=== PATIENT | male | born 1960 | race Two or more races ===

== ENCOUNTER 2020-07-03 17:37 | Inpatient (IN) | payer MEDICAID, OTHER ==
[~2020-07-03] VITALS: Ht 167.6 cm; Wt 103.2 kg
[2020-07-03] MEDS ORDERED: ZINC SULFATE 220mg CAP or TAB PO ONE (18:00)
[2020-07-03] MEDS ORDERED: methylPREDNISolone SOD SUCC 125 MG/2 ML VL IV ONE (18:00)
[2020-07-03] MEDS ORDERED: CHOLECALCIFEROL (VITD3) 2,000 UNIT CAP/TAB PO ONE (18:00)
[2020-07-03] MEDS ORDERED: ASCORBIC ACID 500 MG TAB PO ONE (18:00)
[2020-07-03 18:33] LABS: Basophils # (auto) 0 10 ^3/uL (0-0.2); Basophils % (auto) 0.1 % (0.0-2.0); Eosinophils # (auto) 0 10 ^3/uL (0-0.8); Hematocrit 40.3 % (41.0-53.0); Hemoglobin 13.5 g/dL (13.5-17.5); Lymphocytes # (auto) 0.3 10 ^3/uL (0.4-5.4); Lymphocytes % (auto) 3.3 % (10.0-50.0); Mean Corpuscular Hemoglobin 30.3 pg (28.0-32.0); Mean Corpuscular Hgb Conc. 33.5 g/dL (32.0-36.0); Mean Corpuscular Volume 90.4 fL (80.0-100.0); Monocytes # (auto) 0.3 10 ^3/uL (0-1.3); Monocytes % (auto) 3.2 % (0.0-12.0); Neutrophils # (auto) 9.8 10 ^3/uL (1.6-8.6); Neutrophils % (auto) 93.4 % (37.0-80.0); Platelet Count (auto) 269 10^3/uL (140-450); Red Blood Cells 4.46 10^6/uL (4.5-5.90); Red Cell Distribution Width 14.4 % (11.8-14.3); White Blood Cell 10.5 10^3/uL (4.4-10.8)
[2020-07-03] MEDS ORDERED: FUROSEMIDE 40 MG/4 ML VIAL IV ONE (18:45)
[2020-07-03 18:48] LABS: Albumin 2.3 g/dL (3.4-5.0); Anion Gap 9 (5-15); Blood Urea Nitrogen 51 mg/dL (7-18); Calcium 8.4 mg/dL (8.5-10.1); Carbon Dioxide 23 mmol/L (21-32); Chloride 98 mmol/L (98-107); Potassium 4.6 mmol/L (3.5-5.1); Sodium 130 mmol/L (136-145)
[2020-07-03 18:51] LABS: Lactic Acid w/Reflex 3.7 mmol/L (0.4-2.0)
[2020-07-03 18:56] LABS: Alanine Aminotransferase 77 U/L (16-61); Alkaline Phosphatase 110 U/L (45-117); Aspartate Aminotransferase 66 U/L (15-37); BUN/Creatinine Ratio 31.5; Bilirubin, Total 0.2 mg/dL (0.2-1.0); GFR African American 57 mL/min; GFR Non-African American 47 mL/min; Total Protein 7.6 g/dL (6.4-8.2)
[2020-07-03 19:00] LABS: Glucose 589 mg/dL (74-106)
[2020-07-03] MEDS ORDERED: HYDROcodone-ACET 5/325MG TAB PO PRN (19:30)
[2020-07-03] MEDS ORDERED: LORazepam 0.5 MG TAB PO PRN (19:30)
[2020-07-03] MEDS ORDERED: REMDESIVIR PER PHARMACY 0 ML IV SCH (19:30)
[2020-07-03] MEDS ORDERED: LACTATED RINGER'S 1,000 ML IV ONE (19:30)
[2020-07-03] MEDS ORDERED: ONDANSETRON HCL 4 MG/2 ML VIAL IV PRN (19:30)
[2020-07-03] MEDS ORDERED: ACETAMINOPHEN 500 MG TAB PO PRN (19:30)
[2020-07-03] MEDS ORDERED: ENOXAPARIN SOD 120 MG/0.8 ML SYRINGE SC ONE (19:30)
[2020-07-03] MEDS ORDERED: ALBUMIN 25% 100 ML IV ONE (19:30)
[2020-07-03] MEDS ORDERED: MORPHINE SULF INJ 2 MG/ML SYRINGE 1ML IV PRN ×2 (19:30)
[2020-07-03] MEDS ORDERED: ALUM & MAG HYDROX-SIMETH LIQ(MAALOX) 30 ML PO PRN (19:30)
[2020-07-03] MEDS ORDERED: InsuLIN REG 1unit/0.01ml Soln (100units/ml) SC ONE (19:30)
[2020-07-03] MEDS ORDERED: NITROGLYCERIN 0.4 MG SL TAB SL PRN (19:30)
[2020-07-03] MEDS ORDERED: InsuLIN REG 1unit/0.01ml Soln (100units/ml) IV ONE (19:30)
[2020-07-03] MEDS ORDERED: DEXTROSE (50%) 50ML SYRG IV PRN (19:30)
[2020-07-03] MEDS ORDERED: FUROSEMIDE 100 MG/10ML VIAL IV ONE (19:45)
[2020-07-03] MEDS ORDERED: hydrALAZINE HCL 20 MG/ML VL IV PRN (19:45)
[2020-07-03 19:57] LABS: Magnesium 2.4 mg/dL (1.6-2.6)
[2020-07-03 20:05] VITALS: BP 120/73
[2020-07-03 20:06] LABS: CRP High Sensitivity 9.12 mg/dL (< 0.3)
[2020-07-03] MEDS: CEFTRIAXONE SODIUM 2 GM in D5W 5% 50 ML IV SCH (21:11)
[2020-07-03 21:48] LABS: Cholesterol 120 mg/dL (< 200); HDL Cholesterol 18 mg/dL (40-59); LDL Cholesterol 72 mg/dL (< 100); Triglycerides 345 mg/dL (< 150)
[2020-07-03] MEDS: FAMOTIDINE (10MG/ML) 2ML VL IV SCH (22:10)
[2020-07-03] MEDS: ATORVASTATIN 20 MG TAB PO SCH (22:11)
[2020-07-03] MEDS: AZITHROMYCIN 500MG/ 250ML 250 ML IV SCH (23:05)
[2020-07-03 23:50] VITALS: BP 159/84
[2020-07-04] MEDS: ACCU-CHEK COMFORT CURVE STRIP VI SCH ×5 (00:12→23:52)
[2020-07-04] MEDS: InsuLIN REG 1unit/0.01ml Soln (100units/ml) SC SCH ×5 (00:12→21:22)
[2020-07-04] MEDS: BUDESONIDE (INHALATION) 180 MCG IH IN SCH ×3 (00:39→22:28)
[2020-07-04 00:53] LABS: Urine Bacteria NONE SEEN /hpf (None Seen); Urine Blood TRACE /uL (Negative); Urine Specific Gravity 1.013 (1.001-1.035); Urine WBC <1 /hpf (0 - 3)
[2020-07-04 01:08] LABS: Amphetamine Screen, Urine NEGATIVE (NEGATIVE); Barbiturate Scree,Urine NEGATIVE (NEGATIVE); Benzodiazephine Screen, Urine NEGATIVE (NEGATIVE); Cannabinoid Screen, Urine NEGATIVE (NEGATIVE); Cocaine Screen, Urine NEGATIVE (NEGATIVE); Opiate Scree,Urine NEGATIVE (NEGATIVE); Phencyclidine Screen, Urine NEGATIVE (NEGATIVE)
[2020-07-04 02:32] VITALS: BP 126/66
[2020-07-04] MEDS ORDERED: ALBUMIN 25% 100 ML IV SCH ×2 (03:30→22:15)
[2020-07-04] MEDS ORDERED: FUROSEMIDE 20 MG/2 ML VIAL IV SCH (06:00)
[2020-07-04 06:30] LABS: Basophils # (auto) 0 10 ^3/uL (0-0.2); Basophils % (auto) 0.1 % (0.0-2.0); Eosinophils # (auto) 0 10 ^3/uL (0-0.8); Eosinophils % (auto) 0.1 % (0.0-7.0); Hematocrit 39.1 % (41.0-53.0); Hemoglobin 13.5 g/dL (13.5-17.5); Lymphocytes # (auto) 0.5 10 ^3/uL (0.4-5.4); Lymphocytes % (auto) 5.7 % (10.0-50.0); Mean Corpuscular Hgb Conc. 34.5 g/dL (32.0-36.0); Monocytes # (auto) 0.3 10 ^3/uL (0-1.3); Monocytes % (auto) 3.2 % (0.0-12.0); Neutrophils # (auto) 8.1 10 ^3/uL (1.6-8.6); Neutrophils % (auto) 90.9 % (37.0-80.0); Platelet Count (auto) 282 10^3/uL (140-450); Red Cell Distribution Width 14.3 % (11.8-14.3); White Blood Cell 8.9 10^3/uL (4.4-10.8)
[2020-07-04 06:35] LABS: INR 0.98 (0.9-1.15); Partial Thromboplastin Time 27.6 sec (23.0-31.2)
[2020-07-04 06:46] VITALS: BP 152/90
[2020-07-04 07:13] LABS: Albumin 2.8 g/dL (3.4-5.0); BUN/Creatinine Ratio 32.3; Bilirubin, Total 0.4 mg/dL (0.2-1.0); Calcium 8.7 mg/dL (8.5-10.1); Magnesium 2.3 mg/dL (1.6-2.6); Phosphorus 2.7 mg/dL (2.5-4.90); Total Protein 7.8 g/dL (6.4-8.2)
[2020-07-04 09:32] VITALS: BP 160/84
[2020-07-04] MEDS ORDERED: ENOXAPARIN SOD 120 MG/0.8 ML SYRINGE SC SCH (10:00)
[2020-07-04] MEDS ORDERED: IVERMECTIN 3 MG TAB PO ONE (10:00)
[2020-07-04] MEDS: AZITHROMYCIN 500MG/ 250ML 250 ML IV SCH (10:00)
[2020-07-04] MEDS: DexAMETHasone SOD PHOS 10MG/1ML VIAL INJ IV SCH (10:19)
[2020-07-04] MEDS: ASPirin 81 mg TAB PO SCH (10:19)
[2020-07-04] MEDS: ZINC SULFATE 220mg CAP or TAB PO SCH (10:20)
[2020-07-04] MEDS: ASCORBIC ACID 1,000 MG TAB PO SCH (10:20)
[2020-07-04] MEDS: CHOLECALCIFEROL (VITD3) 2,000 UNIT CAP/TAB PO SCH (10:20)
[2020-07-04] MEDS: CEFTRIAXONE SODIUM 2 GM in D5W 5% 50 ML IV SCH (12:02)
[2020-07-04] MEDS: ALBUMIN 25% 100 ML IV SCH ×2 (13:39→21:00)
[2020-07-04 14:36] VITALS: BP 184/91
[2020-07-04] MEDS ORDERED: REMDESIVIR 200 MG in NS 210ml LOADING DOSE ADULT IV ONE (15:00)
[2020-07-04] MEDS ORDERED: LISI-648 PO (16:39)
[2020-07-04] MEDS ORDERED: MULT1TAB82 PO (16:39)
[2020-07-04] MEDS ORDERED: ATOR10TA52 PO (16:39)
[2020-07-04] MEDS ORDERED: INSU100I4 SC (16:39)
[2020-07-04] MEDS ORDERED: INSUINJ37 SC (16:39)
[2020-07-04] MEDS ORDERED: GABA-339 PO (16:39)
[2020-07-04] MEDS ORDERED: METF-372 PO (16:39)
[2020-07-04] MEDS ORDERED: OMEG300C7 PO (16:40)
[2020-07-04] MEDS ORDERED: FUROSEMIDE 40 MG/4 ML VIAL IV ONE (19:15)
[2020-07-04 19:53] VITALS: BP 134/59
[2020-07-04] MEDS: INSULIN LANTUS (GLARGINE) 1 /0.01ml (100units/ml) SC SCH (21:27)
[2020-07-04] MEDS: FAMOTIDINE (10MG/ML) 2ML VL IV SCH (21:41)
[2020-07-04] MEDS: ATORVASTATIN 20 MG TAB PO SCH (21:42)
[2020-07-04] MEDS: ENOXAPARIN SOD 60 MG/0.6 ML SYRINGE SC SCH (21:42)
[2020-07-04] MEDS: ALBUTEROL SULF HFA 90MCG INH 200DOSE IN PRN (22:29)
[2020-07-04 22:38] VITALS: BP 145/76
[2020-07-05] VITALS (8 sets, daily range): BP systolic 116–169; BP diastolic 58–88
[2020-07-05] MEDS: ACCU-CHEK COMFORT CURVE STRIP VI SCH ×4 (05:57→23:38)
[2020-07-05] MEDS: InsuLIN REG 1unit/0.01ml Soln (100units/ml) SC SCH ×4 (06:01→23:40)
[2020-07-05 06:12] LABS: Basophils # (auto) 0 10 ^3/uL (0-0.2); Eosinophils # (auto) 0 10 ^3/uL (0-0.8); Hematocrit 37.4 % (41.0-53.0); Hemoglobin 12.8 g/dL (13.5-17.5); Lymphocytes # (auto) 0.6 10 ^3/uL (0.4-5.4); Lymphocytes % (auto) 7.9 % (10.0-50.0); Mean Corpuscular Hgb Conc. 34.3 g/dL (32.0-36.0); Mean Corpuscular Volume 87.5 fL (80.0-100.0); Monocytes # (auto) 0.4 10 ^3/uL (0-1.3); Monocytes % (auto) 5.4 % (0.0-12.0); Neutrophils # (auto) 6.7 10 ^3/uL (1.6-8.6); Neutrophils % (auto) 86.7 % (37.0-80.0); Nucleated Red Blood Cells % 0.2 %; Platelet Count (auto) 295 10^3/uL (140-450); Red Blood Cells 4.28 10^6/uL (4.5-5.90); Red Cell Distribution Width 14.1 % (11.8-14.3); White Blood Cell 7.7 10^3/uL (4.4-10.8)
[2020-07-05 06:26] LABS: Potassium 3.7 mmol/L (3.5-5.1)
[2020-07-05] MEDS: BUDESONIDE (INHALATION) 180 MCG IH IN SCH ×2 (06:30→19:20)
[2020-07-05 06:39] LABS: Albumin 3.2 g/dL (3.4-5.0); BUN/Creatinine Ratio 37.6; Bilirubin, Total 0.4 mg/dL (0.2-1.0); Calcium 8.9 mg/dL (8.5-10.1); Total Protein 7.7 g/dL (6.4-8.2)
[2020-07-05] MEDS: ALBUTEROL SULF HFA 90MCG INH 200DOSE IN PRN ×2 (06:49→19:20)
[2020-07-05] MEDS: DexAMETHasone SOD PHOS 10MG/1ML VIAL INJ IV SCH (08:02)
[2020-07-05] MEDS ORDERED: cefTRIAXone 1GM/50ML D5W 0 ML IV ONE (08:05)
[2020-07-05] MEDS: ASPirin 81 mg TAB PO SCH (08:09)
[2020-07-05] MEDS: CEFTRIAXONE SODIUM 2 GM in D5W 5% 50 ML IV SCH (08:09)
[2020-07-05] MEDS: FUROSEMIDE 40 MG/4 ML VIAL IV SCH (08:09)
[2020-07-05] MEDS: AZITHROMYCIN 500MG/ 250ML 250 ML IV SCH (08:09)
[2020-07-05] MEDS: ZINC SULFATE 220mg CAP or TAB PO SCH (08:10)
[2020-07-05] MEDS: ENOXAPARIN SOD 60 MG/0.6 ML SYRINGE SC SCH ×2 (08:10→22:15)
[2020-07-05] MEDS: ASCORBIC ACID 1,000 MG TAB PO SCH (08:10)
[2020-07-05] MEDS: CHOLECALCIFEROL (VITD3) 2,000 UNIT CAP/TAB PO SCH (08:10)
[2020-07-05] MEDS: REMDESIVIR 100mg 100 MG in SODIUM CHL 0.9% 230 ML IV SCH (17:14)
[2020-07-05] MEDS ORDERED: POTASSIUM CHL 20 Meq TABLET PO ONE (20:30)
[2020-07-05] MEDS: INSULIN LANTUS (GLARGINE) 1 /0.01ml (100units/ml) SC SCH (22:14)
[2020-07-05] MEDS: ATORVASTATIN 20 MG TAB PO SCH (22:15)
[2020-07-05] MEDS: FAMOTIDINE (10MG/ML) 2ML VL IV SCH (22:15)
[2020-07-06] VITALS: BP_SYST 131; BP_SYST 155; BP_DIAS 65; BP_DIAS 82
[2020-07-06 06:07] LABS: Potassium 3.7 mmol/L (3.5-5.1)
[2020-07-06] MEDS: ACCU-CHEK COMFORT CURVE STRIP VI SCH ×4 (06:08→23:52)
[2020-07-06] MEDS: InsuLIN REG 1unit/0.01ml Soln (100units/ml) SC SCH ×4 (06:16→23:52)
[2020-07-06 06:19] LABS: Albumin 2.9 g/dL (3.4-5.0); BUN/Creatinine Ratio 37.9; Bilirubin, Total 0.4 mg/dL (0.2-1.0); Calcium 8.7 mg/dL (8.5-10.1); Total Protein 7.5 g/dL (6.4-8.2)
[2020-07-06] MEDS: ALBUTEROL SULF HFA 90MCG INH 200DOSE IN PRN ×2 (06:23→18:30)
[2020-07-06] MEDS: BUDESONIDE (INHALATION) 180 MCG IH IN SCH ×2 (06:23→18:30)
[2020-07-06 07:54] VITALS: BP 117/60
[2020-07-06] MEDS: FAMOTIDINE (10MG/ML) 2ML VL IV SCH ×2 (10:15→21:29)
[2020-07-06] MEDS: FUROSEMIDE 40 MG/4 ML VIAL IV SCH (10:15)
[2020-07-06] MEDS: DexAMETHasone SOD PHOS 10MG/1ML VIAL INJ IV SCH (10:15)
[2020-07-06] MEDS: ASCORBIC ACID 1,000 MG TAB PO SCH (10:16)
[2020-07-06] MEDS: CHOLECALCIFEROL (VITD3) 2,000 UNIT CAP/TAB PO SCH (10:16)
[2020-07-06] MEDS: POTASSIUM CHL 20 Meq TABLET PO SCH (10:16)
[2020-07-06] MEDS: AZITHROMYCIN 500MG/ 250ML 250 ML IV SCH (10:16)
[2020-07-06] MEDS: ENOXAPARIN SOD 60 MG/0.6 ML SYRINGE SC SCH ×2 (10:16→21:29)
[2020-07-06] MEDS: ZINC SULFATE 220mg CAP or TAB PO SCH (10:16)
[2020-07-06] MEDS: ASPirin 81 mg TAB PO SCH (10:16)
[2020-07-06] MEDS: REMDESIVIR 100mg 100 MG in SODIUM CHL 0.9% 230 ML IV SCH (15:18)
[2020-07-06 15:44] VITALS: BP 109/69
[2020-07-06] MEDS: CEFTRIAXONE SODIUM 2 GM in D5W 5% 50 ML IV SCH (17:01)
[2020-07-06] MEDS: ATORVASTATIN 20 MG TAB PO SCH (21:29)
[2020-07-06] MEDS: INSULIN LANTUS (GLARGINE) 1 /0.01ml (100units/ml) SC SCH (21:34)
[2020-07-06 23:48] VITALS: BP 137/66
[2020-07-07] MEDS: InsuLIN REG 1unit/0.01ml Soln (100units/ml) SC SCH ×4 (05:32→23:58)
[2020-07-07] MEDS: ACCU-CHEK COMFORT CURVE STRIP VI SCH ×3 (05:32→17:40)
[2020-07-07 06:06] LABS: Basophils # (auto) 0 10 ^3/uL (0-0.2); Basophils % (auto) 0.1 % (0.0-2.0); Eosinophils # (auto) 0 10 ^3/uL (0-0.8); Eosinophils % (auto) 0.1 % (0.0-7.0); Hematocrit 40.3 % (41.0-53.0); Hemoglobin 13.9 g/dL (13.5-17.5); Lymphocytes # (auto) 0.5 10 ^3/uL (0.4-5.4); Lymphocytes % (auto) 6.4 % (10.0-50.0); Mean Corpuscular Hemoglobin 30.2 pg (28.0-32.0); Mean Corpuscular Hgb Conc. 34.4 g/dL (32.0-36.0); Monocytes # (auto) 0.1 10 ^3/uL (0-1.3); Monocytes % (auto) 1.3 % (0.0-12.0); Neutrophils # (auto) 7.2 10 ^3/uL (1.6-8.6); Neutrophils % (auto) 92.1 % (37.0-80.0); Platelet Count (auto) 305 10^3/uL (140-450); Red Blood Cells 4.58 10^6/uL (4.5-5.90); Red Cell Distribution Width 14.2 % (11.8-14.3); White Blood Cell 7.8 10^3/uL (4.4-10.8)
[2020-07-07 06:24] LABS: Albumin 2.7 g/dL (3.4-5.0); Calcium 8.7 mg/dL (8.5-10.1); Potassium 4.1 mmol/L (3.5-5.1)
[2020-07-07 06:28] LABS: BUN/Creatinine Ratio 34.3; Bilirubin, Total 0.6 mg/dL (0.2-1.0); Total Protein 7.6 g/dL (6.4-8.2)
[2020-07-07] MEDS: BUDESONIDE (INHALATION) 180 MCG IH IN SCH ×2 (07:00→19:58)
[2020-07-07] MEDS: ALBUTEROL SULF HFA 90MCG INH 200DOSE IN PRN ×2 (07:00→19:59)
[2020-07-07 08:00] VITALS: BP 91/46
[2020-07-07] MEDS: DexAMETHasone SOD PHOS 10MG/1ML VIAL INJ IV SCH (09:35)
[2020-07-07] MEDS: FUROSEMIDE 40 MG/4 ML VIAL IV SCH (09:38)
[2020-07-07] MEDS: FAMOTIDINE (10MG/ML) 2ML VL IV SCH ×2 (09:38→23:48)
[2020-07-07] MEDS: CEFTRIAXONE SODIUM 2 GM in D5W 5% 50 ML IV SCH (09:38)
[2020-07-07] MEDS: ASPirin 81 mg TAB PO SCH (09:38)
[2020-07-07] MEDS: ASCORBIC ACID 1,000 MG TAB PO SCH (09:39)
[2020-07-07] MEDS: POTASSIUM CHL 20 Meq TABLET PO SCH (09:39)
[2020-07-07] MEDS: CHOLECALCIFEROL (VITD3) 2,000 UNIT CAP/TAB PO SCH (09:39)
[2020-07-07] MEDS: ZINC SULFATE 220mg CAP or TAB PO SCH (09:39)
[2020-07-07] MEDS: ENOXAPARIN SOD 60 MG/0.6 ML SYRINGE SC SCH ×2 (09:40→22:47)
[2020-07-07] MEDS: AZITHROMYCIN 500MG/ 250ML 250 ML IV SCH (12:11)
[2020-07-07 16:00] VITALS: BP 113/69
[2020-07-07] MEDS: REMDESIVIR 100mg 100 MG in SODIUM CHL 0.9% 230 ML IV SCH (16:00)
[2020-07-07] MEDS: INSULIN LANTUS (GLARGINE) 1 /0.01ml (100units/ml) SC SCH (22:00)
[2020-07-07] MEDS: ATORVASTATIN 20 MG TAB PO SCH (22:48)
[2020-07-08] VITALS: BP 125/77
[2020-07-08] MEDS: InsuLIN REG 1unit/0.01ml Soln (100units/ml) SC SCH ×3 (06:00→18:15)
[2020-07-08] MEDS: ACCU-CHEK COMFORT CURVE STRIP VI SCH ×4 (06:00→18:10)
[2020-07-08 06:20] LABS: Basophils # (auto) 0 10 ^3/uL (0-0.2); Eosinophils # (auto) 0 10 ^3/uL (0-0.8); Eosinophils % (auto) 0.2 % (0.0-7.0); Hemoglobin 13.2 g/dL (13.5-17.5); Lymphocytes # (auto) 0.4 10 ^3/uL (0.4-5.4); Lymphocytes % (auto) 4.7 % (10.0-50.0); Mean Corpuscular Hemoglobin 30.3 pg (28.0-32.0); Mean Corpuscular Hgb Conc. 34.7 g/dL (32.0-36.0); Mean Corpuscular Volume 87.3 fL (80.0-100.0); Monocytes # (auto) 0.1 10 ^3/uL (0-1.3); Monocytes % (auto) 0.9 % (0.0-12.0); Neutrophils # (auto) 7.2 10 ^3/uL (1.6-8.6); Neutrophils % (auto) 94.2 % (37.0-80.0); Platelet Count (auto) 324 10^3/uL (140-450); Red Blood Cells 4.36 10^6/uL (4.5-5.90); White Blood Cell 7.6 10^3/uL (4.4-10.8)
[2020-07-08 06:29] LABS: Albumin 2.3 g/dL (3.4-5.0); Calcium 8.6 mg/dL (8.5-10.1); Potassium 4.2 mmol/L (3.5-5.1)
[2020-07-08 06:33] LABS: BUN/Creatinine Ratio 43.6; Bilirubin, Total 0.5 mg/dL (0.2-1.0); Total Protein 7.3 g/dL (6.4-8.2)
[2020-07-08] MEDS: ALBUTEROL SULF HFA 90MCG INH 200DOSE IN PRN ×2 (07:28→20:21)
[2020-07-08] MEDS: BUDESONIDE (INHALATION) 180 MCG IH IN SCH ×2 (07:28→20:20)
[2020-07-08 08:00] VITALS: BP 132/76
[2020-07-08] MEDS ORDERED: CEFTRIAXONE SODIUM 2 GM in D5W 5% 50 ML IV ONE ×2 (10:30→12:45)
[2020-07-08] MEDS ORDERED: CEFTRIAXONE SODIUM 2 GM in D5W 5% 50 ML IV SCH (10:30)
[2020-07-08] MEDS: DexAMETHasone SOD PHOS 10MG/1ML VIAL INJ IV SCH (11:29)
[2020-07-08] MEDS: FAMOTIDINE (10MG/ML) 2ML VL IV SCH ×2 (11:30→22:14)
[2020-07-08] MEDS: FUROSEMIDE 40 MG/4 ML VIAL IV SCH (11:30)
[2020-07-08] MEDS: ASPirin 81 mg TAB PO SCH (11:30)
[2020-07-08] MEDS: POTASSIUM CHL 20 Meq TABLET PO SCH (11:31)
[2020-07-08] MEDS: ZINC SULFATE 220mg CAP or TAB PO SCH (11:31)
[2020-07-08] MEDS: CHOLECALCIFEROL (VITD3) 2,000 UNIT CAP/TAB PO SCH (11:31)
[2020-07-08] MEDS: ENOXAPARIN SOD 60 MG/0.6 ML SYRINGE SC SCH ×2 (11:31→22:14)
[2020-07-08] MEDS: ASCORBIC ACID 1,000 MG TAB PO SCH (11:31)
[2020-07-08 16:00] VITALS: BP 114/67
[2020-07-08] MEDS: AZITHROMYCIN 500MG/ 250ML 250 ML IV SCH (16:50)
[2020-07-08 20:20] VITALS: BP 114/67
[2020-07-08] MEDS: REMDESIVIR 100mg 100 MG in SODIUM CHL 0.9% 230 ML IV SCH (21:05)
[2020-07-08] MEDS: ATORVASTATIN 20 MG TAB PO SCH (22:14)
[2020-07-08] MEDS: INSULIN LANTUS (GLARGINE) 1 /0.01ml (100units/ml) SC SCH (22:15)
[2020-07-09] VITALS (7 sets, daily range): BP systolic 11–139; BP diastolic 57–84
[2020-07-09] MEDS: ACCU-CHEK COMFORT CURVE STRIP VI SCH ×4 (00:06→17:33)
[2020-07-09] MEDS: InsuLIN REG 1unit/0.01ml Soln (100units/ml) SC SCH ×4 (00:07→17:34)
[2020-07-09 05:29] LABS: Basophils # (auto) 0 10 ^3/uL (0-0.2); Basophils % (auto) 0.1 % (0.0-2.0); Eosinophils # (auto) 0 10 ^3/uL (0-0.8); Hematocrit 39.3 % (41.0-53.0); Hemoglobin 13.8 g/dL (13.5-17.5); Lymphocytes # (auto) 0.3 10 ^3/uL (0.4-5.4); Lymphocytes % (auto) 4.1 % (10.0-50.0); Mean Corpuscular Hemoglobin 30.4 pg (28.0-32.0); Mean Corpuscular Volume 86.7 fL (80.0-100.0); Monocytes # (auto) 0.1 10 ^3/uL (0-1.3); Neutrophils # (auto) 7.1 10 ^3/uL (1.6-8.6); Neutrophils % (auto) 94.8 % (37.0-80.0); Platelet Count (auto) 368 10^3/uL (140-450); Red Blood Cells 4.53 10^6/uL (4.5-5.90); Red Cell Distribution Width 14.4 % (11.8-14.3); White Blood Cell 7.5 10^3/uL (4.4-10.8)
[2020-07-09 05:55] LABS: Calcium 8.7 mg/dL (8.5-10.1); Potassium 4.4 mmol/L (3.5-5.1)
[2020-07-09 06:00] LABS: BUN/Creatinine Ratio 44.2
[2020-07-09] MEDS: ALBUTEROL SULF HFA 90MCG INH 200DOSE IN PRN ×2 (06:44→20:32)
[2020-07-09] MEDS: BUDESONIDE (INHALATION) 180 MCG IH IN SCH ×2 (06:44→20:32)
[2020-07-09] MEDS ORDERED: CEFTRIAXONE SODIUM 2 GM in D5W 5% 50 ML IV SCH (10:00)
[2020-07-09] MEDS: FUROSEMIDE 40 MG/4 ML VIAL IV SCH (10:11)
[2020-07-09] MEDS: ASPirin 81 mg TAB PO SCH (10:11)
[2020-07-09] MEDS: DexAMETHasone SOD PHOS 10MG/1ML VIAL INJ IV SCH (10:11)
[2020-07-09] MEDS: ENOXAPARIN SOD 60 MG/0.6 ML SYRINGE SC SCH ×2 (10:12→22:55)
[2020-07-09] MEDS: CHOLECALCIFEROL (VITD3) 2,000 UNIT CAP/TAB PO SCH (10:12)
[2020-07-09] MEDS: FAMOTIDINE (10MG/ML) 2ML VL IV SCH ×2 (10:12→22:54)
[2020-07-09] MEDS: POTASSIUM CHL 20 Meq TABLET PO SCH (10:12)
[2020-07-09] MEDS: ASCORBIC ACID 1,000 MG TAB PO SCH (10:12)
[2020-07-09] MEDS: ZINC SULFATE 220mg CAP or TAB PO SCH (10:13)
[2020-07-09] MEDS: CEFTRIAXONE SODIUM 2 GM in D5W 5% 50 ML IV SCH (14:51)
[2020-07-09] MEDS: AZITHROMYCIN 500MG/ 250ML 250 ML IV SCH (14:51)
[2020-07-09] MEDS: INSULIN LANTUS (GLARGINE) 1 /0.01ml (100units/ml) SC SCH (22:00)
[2020-07-09] MEDS: ATORVASTATIN 20 MG TAB PO SCH (22:55)
[2020-07-10] VITALS: BP 139/84
[2020-07-10] MEDS: InsuLIN REG 1unit/0.01ml Soln (100units/ml) SC SCH ×4 (00:35→17:43)
[2020-07-10] MEDS: ACCU-CHEK COMFORT CURVE STRIP VI SCH ×4 (00:35→17:42)
[2020-07-10 00:45] VITALS: BP 139/84
[2020-07-10 07:13] LABS: Basophils # (auto) 0 10 ^3/uL (0-0.2); Eosinophils # (auto) 0 10 ^3/uL (0-0.8); Eosinophils % (auto) 0.1 % (0.0-7.0); Lymphocytes % (auto) 3.9 % (10.0-50.0); Monocytes # (auto) 0.1 10 ^3/uL (0-1.3); Red Cell Distribution Width 14.3 % (11.8-14.3)
[2020-07-10 07:16] LABS: Hematocrit 41.2 % (41.0-53.0); Hemoglobin 13.9 g/dL (13.5-17.5); Lymphocytes # (auto) 0.4 10 ^3/uL (0.4-5.4); Mean Corpuscular Hemoglobin 29.5 pg (28.0-32.0); Mean Corpuscular Hgb Conc. 33.8 g/dL (32.0-36.0); Mean Corpuscular Volume 87.2 fL (80.0-100.0); Monocytes % (auto) 1.3 % (0.0-12.0); Neutrophils # (auto) 8.7 10 ^3/uL (1.6-8.6); Neutrophils % (auto) 94.7 % (37.0-80.0); Nucleated Red Blood Cells % 0.1 %; Platelet Count (auto) 464 10^3/uL (140-450); Red Blood Cells 4.72 10^6/uL (4.5-5.90); White Blood Cell 9.1 10^3/uL (4.4-10.8)
[2020-07-10 07:29] LABS: Potassium 4.4 mmol/L (3.5-5.1)
[2020-07-10 07:38] LABS: BUN/Creatinine Ratio 50.5; Calcium 9.1 mg/dL (8.5-10.1)
[2020-07-10 08:00] VITALS: BP 126/78
[2020-07-10] MEDS: CEFTRIAXONE SODIUM 2 GM in D5W 5% 50 ML IV SCH (08:55)
[2020-07-10] MEDS: DexAMETHasone SOD PHOS 10MG/1ML VIAL INJ IV SCH (10:09)
[2020-07-10] MEDS: AZITHROMYCIN 500MG/ 250ML 250 ML IV SCH (10:09)
[2020-07-10] MEDS: FAMOTIDINE (10MG/ML) 2ML VL IV SCH ×2 (10:09→21:30)
[2020-07-10] MEDS: FUROSEMIDE 40 MG/4 ML VIAL IV SCH (10:09)
[2020-07-10] MEDS: ZINC SULFATE 220mg CAP or TAB PO SCH (10:10)
[2020-07-10] MEDS: POTASSIUM CHL 20 Meq TABLET PO SCH (10:10)
[2020-07-10] MEDS: ASPirin 81 mg TAB PO SCH (10:10)
[2020-07-10] MEDS: CHOLECALCIFEROL (VITD3) 2,000 UNIT CAP/TAB PO SCH (10:11)
[2020-07-10] MEDS: ASCORBIC ACID 1,000 MG TAB PO SCH (10:11)
[2020-07-10] MEDS: ENOXAPARIN SOD 60 MG/0.6 ML SYRINGE SC SCH ×2 (10:11→21:30)
[2020-07-10] MEDS: BUDESONIDE (INHALATION) 180 MCG IH IN SCH ×2 (10:15→19:00)
[2020-07-10] MEDS: ALBUTEROL SULF HFA 90MCG INH 200DOSE IN PRN ×2 (12:42→19:00)
[2020-07-10 16:00] VITALS: BP 119/71
[2020-07-10 18:50] VITALS: BP 119/71
[2020-07-10] MEDS: ATORVASTATIN 20 MG TAB PO SCH (21:30)
[2020-07-10] MEDS: INSULIN LANTUS (GLARGINE) 1 /0.01ml (100units/ml) SC SCH (22:10)
[2020-07-11] VITALS: BP 144/77
[2020-07-11 00:20] VITALS: BP 144/77
[2020-07-11] MEDS: ACCU-CHEK COMFORT CURVE STRIP VI SCH ×4 (00:30→18:31)
[2020-07-11] MEDS: InsuLIN REG 1unit/0.01ml Soln (100units/ml) SC SCH ×4 (00:40→18:32)
[2020-07-11] MEDS: ALBUTEROL SULF HFA 90MCG INH 200DOSE IN PRN ×2 (06:03→19:42)
[2020-07-11] MEDS: BUDESONIDE (INHALATION) 180 MCG IH IN SCH ×2 (06:03→19:42)
[2020-07-11 08:00] VITALS: BP 113/72
[2020-07-11 08:02] LABS: Basophils # (auto) 0 10 ^3/uL (0-0.2); Basophils % (auto) 0.2 % (0.0-2.0); Eosinophils # (auto) 0 10 ^3/uL (0-0.8); Eosinophils % (auto) 0.4 % (0.0-7.0); Hematocrit 40.9 % (41.0-53.0); Hemoglobin 14.3 g/dL (13.5-17.5); Lymphocytes # (auto) 0.4 10 ^3/uL (0.4-5.4); Lymphocytes % (auto) 4.5 % (10.0-50.0); Mean Corpuscular Hemoglobin 30.4 pg (28.0-32.0); Mean Corpuscular Hgb Conc. 35.1 g/dL (32.0-36.0); Mean Corpuscular Volume 86.7 fL (80.0-100.0); Monocytes # (auto) 0.1 10 ^3/uL (0-1.3); Monocytes % (auto) 1.4 % (0.0-12.0); Neutrophils % (auto) 93.5 % (37.0-80.0); Platelet Count (auto) 449 10^3/uL (140-450); Red Blood Cells 4.71 10^6/uL (4.5-5.90); Red Cell Distribution Width 14.1 % (11.8-14.3); White Blood Cell 9.6 10^3/uL (4.4-10.8)
[2020-07-11 08:22] LABS: BUN/Creatinine Ratio 47.5; Calcium 8.9 mg/dL (8.5-10.1); Potassium 4.5 mmol/L (3.5-5.1)
[2020-07-11] MEDS: CEFTRIAXONE SODIUM 2 GM in D5W 5% 50 ML IV SCH (08:48)
[2020-07-11] MEDS: FUROSEMIDE 40 MG/4 ML VIAL IV SCH (09:55)
[2020-07-11] MEDS: DexAMETHasone SOD PHOS 10MG/1ML VIAL INJ IV SCH (09:55)
[2020-07-11] MEDS: FAMOTIDINE (10MG/ML) 2ML VL IV SCH ×2 (09:55→21:43)
[2020-07-11] MEDS: ASPirin 81 mg TAB PO SCH (09:56)
[2020-07-11] MEDS: ZINC SULFATE 220mg CAP or TAB PO SCH (09:56)
[2020-07-11] MEDS: POTASSIUM CHL 20 Meq TABLET PO SCH (09:56)
[2020-07-11] MEDS: ENOXAPARIN SOD 60 MG/0.6 ML SYRINGE SC SCH ×2 (09:57→21:43)
[2020-07-11] MEDS: CHOLECALCIFEROL (VITD3) 2,000 UNIT CAP/TAB PO SCH (09:57)
[2020-07-11] MEDS: ASCORBIC ACID 1,000 MG TAB PO SCH (09:57)
[2020-07-11 16:00] VITALS: BP 131/77
[2020-07-11] MEDS: ATORVASTATIN 20 MG TAB PO SCH (21:43)
[2020-07-11] MEDS: INSULIN LANTUS (GLARGINE) 1 /0.01ml (100units/ml) SC SCH (21:59)
[2020-07-12] VITALS: BP 94/52
[2020-07-12] MEDS: ACCU-CHEK COMFORT CURVE STRIP VI SCH ×4 (00:22→17:35)
[2020-07-12] MEDS: InsuLIN REG 1unit/0.01ml Soln (100units/ml) SC SCH ×4 (00:22→17:33)
[2020-07-12 07:54] LABS: Basophils # (auto) 0 10 ^3/uL (0-0.2); Eosinophils # (auto) 0 10 ^3/uL (0-0.8); Eosinophils % (auto) 0.1 % (0.0-7.0); Hematocrit 39.3 % (41.0-53.0); Hemoglobin 13.8 g/dL (13.5-17.5); Lymphocytes # (auto) 0.3 10 ^3/uL (0.4-5.4); Lymphocytes % (auto) 3.4 % (10.0-50.0); Mean Corpuscular Hemoglobin 30.3 pg (28.0-32.0); Mean Corpuscular Volume 86.5 fL (80.0-100.0); Monocytes # (auto) 0.1 10 ^3/uL (0-1.3); Monocytes % (auto) 1.5 % (0.0-12.0); Neutrophils # (auto) 8.6 10 ^3/uL (1.6-8.6); Platelet Count (auto) 423 10^3/uL (140-450); Red Blood Cells 4.54 10^6/uL (4.5-5.90)
[2020-07-12 08:00] VITALS: BP 115/70
[2020-07-12 08:27] LABS: Potassium 4.3 mmol/L (3.5-5.1)
[2020-07-12 08:37] LABS: BUN/Creatinine Ratio 54.5; Calcium 8.6 mg/dL (8.5-10.1)
[2020-07-12] MEDS: CEFTRIAXONE SODIUM 2 GM in D5W 5% 50 ML IV SCH (10:09)
[2020-07-12] MEDS: POTASSIUM CHL 20 Meq TABLET PO SCH (10:15)
[2020-07-12] MEDS: ASPirin 81 mg TAB PO SCH (10:15)
[2020-07-12] MEDS: ASCORBIC ACID 1,000 MG TAB PO SCH (10:16)
[2020-07-12] MEDS: ZINC SULFATE 220mg CAP or TAB PO SCH (10:16)
[2020-07-12] MEDS: FUROSEMIDE 40 MG/4 ML VIAL IV SCH (10:17)
[2020-07-12] MEDS: ENOXAPARIN SOD 60 MG/0.6 ML SYRINGE SC SCH ×2 (10:18→22:50)
[2020-07-12] MEDS: DexAMETHasone SOD PHOS 10MG/1ML VIAL INJ IV SCH (10:24)
[2020-07-12] MEDS: CHOLECALCIFEROL (VITD3) 2,000 UNIT CAP/TAB PO SCH (10:25)
[2020-07-12] MEDS: FAMOTIDINE (10MG/ML) 2ML VL IV SCH ×2 (10:25→22:00)
[2020-07-12] MEDS: BUDESONIDE (INHALATION) 180 MCG IH IN SCH ×2 (11:47→20:24)
[2020-07-12 16:00] VITALS: BP 117/70
[2020-07-12] MEDS: ALBUTEROL SULF HFA 90MCG INH 200DOSE IN PRN (21:14)
[2020-07-12] MEDS: ATORVASTATIN 20 MG TAB PO SCH (22:50)
[2020-07-12] MEDS: INSULIN LANTUS (GLARGINE) 1 /0.01ml (100units/ml) SC SCH (23:55)
[2020-07-13] VITALS: BP 138/77
[2020-07-13] MEDS: InsuLIN REG 1unit/0.01ml Soln (100units/ml) SC SCH ×5 (00:55→23:49)
[2020-07-13] MEDS: ACCU-CHEK COMFORT CURVE STRIP VI SCH ×5 (00:55→23:52)
[2020-07-13] MEDS: BUDESONIDE (INHALATION) 180 MCG IH IN SCH ×2 (06:20→21:22)
[2020-07-13 08:22] VITALS: BP 109/66
[2020-07-13] MEDS: INSULIN LANTUS (GLARGINE) 1 /0.01ml (100units/ml) SC SCH ×2 (10:00→23:49)
[2020-07-13] MEDS: ASCORBIC ACID 1,000 MG TAB PO SCH (10:09)
[2020-07-13] MEDS: ASPirin 81 mg TAB PO SCH (10:09)
[2020-07-13] MEDS: CHOLECALCIFEROL (VITD3) 2,000 UNIT CAP/TAB PO SCH (10:09)
[2020-07-13] MEDS: POTASSIUM CHL 20 Meq TABLET PO SCH (10:09)
[2020-07-13] MEDS: ZINC SULFATE 220mg CAP or TAB PO SCH (10:10)
[2020-07-13] MEDS: CEFTRIAXONE SODIUM 2 GM in D5W 5% 50 ML IV SCH (10:12)
[2020-07-13] MEDS: DexAMETHasone SOD PHOS 10MG/1ML VIAL INJ IV SCH (10:21)
[2020-07-13] MEDS: FUROSEMIDE 40 MG/4 ML VIAL IV SCH (10:21)
[2020-07-13] MEDS: FAMOTIDINE (10MG/ML) 2ML VL IV SCH ×2 (10:21→21:50)
[2020-07-13] MEDS: ENOXAPARIN SOD 60 MG/0.6 ML SYRINGE SC SCH ×2 (10:29→21:50)
[2020-07-13 16:00] VITALS: BP 107/66
[2020-07-13] MEDS ORDERED: POLYETHYLENE GLYCOL 17 GM PWDR PO ONE (16:30)
[2020-07-13] MEDS: ALBUTEROL SULF HFA 90MCG INH 200DOSE IN PRN (21:23)
[2020-07-13] MEDS: ATORVASTATIN 20 MG TAB PO SCH (21:50)
[2020-07-14] VITALS: BP 134/91
[2020-07-14] MEDS: ALBUTEROL SULF HFA 90MCG INH 200DOSE IN PRN ×2 (05:55→21:40)
[2020-07-14] MEDS: BUDESONIDE (INHALATION) 180 MCG IH IN SCH ×2 (05:55→21:40)
[2020-07-14] MEDS: InsuLIN REG 1unit/0.01ml Soln (100units/ml) SC SCH ×4 (06:00→23:52)
[2020-07-14] MEDS: ACCU-CHEK COMFORT CURVE STRIP VI SCH ×4 (06:00→23:50)
[2020-07-14 06:34] LABS: Potassium 4.7 mmol/L (3.5-5.1)
[2020-07-14 07:15] LABS: BUN/Creatinine Ratio 54.7; CRP High Sensitivity 3.78 mg/dL (< 0.3)
[2020-07-14 08:02] VITALS: BP 122/74
[2020-07-14] MEDS: CEFTRIAXONE SODIUM 2 GM in D5W 5% 50 ML IV SCH (08:30)
[2020-07-14] MEDS: DexAMETHasone SOD PHOS 10MG/1ML VIAL INJ IV SCH (09:57)
[2020-07-14] MEDS: FUROSEMIDE 40 MG/4 ML VIAL IV SCH (09:58)
[2020-07-14] MEDS: FAMOTIDINE (10MG/ML) 2ML VL IV SCH ×2 (10:01→23:08)
[2020-07-14] MEDS: POTASSIUM CHL 20 Meq TABLET PO SCH (10:02)
[2020-07-14] MEDS: ZINC SULFATE 220mg CAP or TAB PO SCH (10:03)
[2020-07-14] MEDS: CHOLECALCIFEROL (VITD3) 2,000 UNIT CAP/TAB PO SCH (10:05)
[2020-07-14] MEDS: ASCORBIC ACID 1,000 MG TAB PO SCH (10:05)
[2020-07-14] MEDS: ENOXAPARIN SOD 60 MG/0.6 ML SYRINGE SC SCH ×2 (10:06→23:08)
[2020-07-14] MEDS: ASPirin 81 mg TAB PO SCH (10:08)
[2020-07-14] MEDS: INSULIN LANTUS (GLARGINE) 1 /0.01ml (100units/ml) SC SCH (10:16)
[2020-07-14 16:13] VITALS: BP 127/75
[2020-07-14] MEDS ORDERED: INSULIN LANTUS (GLARGINE) 1 /0.01ml (100units/ml) SC ONE ×2 (18:00→18:15)
[2020-07-14] MEDS ORDERED: InsuLIN REG 1unit/0.01ml Soln (100units/ml) IV ONE (19:30)
[2020-07-14] MEDS: ATORVASTATIN 20 MG TAB PO SCH (23:01)
[2020-07-15] VITALS: BP 109/74
[2020-07-15] MEDS: ACCU-CHEK COMFORT CURVE STRIP VI SCH ×4 (06:14→23:23)
[2020-07-15] MEDS: BUDESONIDE (INHALATION) 180 MCG IH IN SCH ×2 (06:15→18:40)
[2020-07-15] MEDS: ALBUTEROL SULF HFA 90MCG INH 200DOSE IN PRN ×2 (06:15→18:40)
[2020-07-15] MEDS: InsuLIN REG 1unit/0.01ml Soln (100units/ml) SC SCH ×4 (06:17→23:32)
[2020-07-15] MEDS: INSULIN LANTUS (GLARGINE) 1 /0.01ml (100units/ml) SC SCH (06:18)
[2020-07-15] MEDS ORDERED: INSULIN LANTUS (GLARGINE) 1 /0.01ml (100units/ml) SC SCH (07:00)
[2020-07-15 08:15] VITALS: BP 126/73
[2020-07-15] MEDS: CEFTRIAXONE SODIUM 2 GM in D5W 5% 50 ML IV SCH (08:59)
[2020-07-15] MEDS: DexAMETHasone SOD PHOS 10MG/1ML VIAL INJ IV SCH (09:54)
[2020-07-15] MEDS: FUROSEMIDE 40 MG/4 ML VIAL IV SCH (09:54)
[2020-07-15] MEDS: ASPirin 81 mg TAB PO SCH (09:55)
[2020-07-15] MEDS: ASCORBIC ACID 1,000 MG TAB PO SCH (09:55)
[2020-07-15] MEDS: ZINC SULFATE 220mg CAP or TAB PO SCH (09:55)
[2020-07-15] MEDS: FAMOTIDINE (10MG/ML) 2ML VL IV SCH ×2 (09:55→22:33)
[2020-07-15] MEDS: POTASSIUM CHL 20 Meq TABLET PO SCH (09:56)
[2020-07-15] MEDS: CHOLECALCIFEROL (VITD3) 2,000 UNIT CAP/TAB PO SCH (10:11)
[2020-07-15] MEDS: ENOXAPARIN SOD 60 MG/0.6 ML SYRINGE SC SCH ×2 (10:12→22:33)
[2020-07-15 15:59] VITALS: BP 125/80
[2020-07-15] MEDS ORDERED: DOXYCYCLINE 100MG/250ML 250 ML IV ONE (16:45)
[2020-07-15] MEDS: ATORVASTATIN 20 MG TAB PO SCH (22:33)
[2020-07-16] VITALS (30 sets, daily range): BP systolic 89–186; BP diastolic 47–104
[2020-07-16] MEDS: DOXYCYCLINE 100MG/250ML 250 ML IV SCH ×2 (05:24→18:55)
[2020-07-16] MEDS: ACCU-CHEK COMFORT CURVE STRIP VI SCH ×3 (06:00→18:00)
[2020-07-16] MEDS: InsuLIN REG 1unit/0.01ml Soln (100units/ml) SC SCH ×3 (06:33→18:00)
[2020-07-16] MEDS: INSULIN LANTUS (GLARGINE) 1 /0.01ml (100units/ml) SC SCH (06:34)
[2020-07-16] MEDS: ALBUTEROL SULF HFA 90MCG INH 200DOSE IN PRN (06:36)
[2020-07-16] MEDS: BUDESONIDE (INHALATION) 180 MCG IH IN SCH ×2 (06:36→22:00)
[2020-07-16 08:19] LABS: Basophils # (auto) 0 10 ^3/uL (0-0.2); Eosinophils # (auto) 0 10 ^3/uL (0-0.8); Eosinophils % (auto) 0.1 % (0.0-7.0); Hematocrit 43.2 % (41.0-53.0); Hemoglobin 14.7 g/dL (13.5-17.5); Lymphocytes # (auto) 0.4 10 ^3/uL (0.4-5.4); Lymphocytes % (auto) 3.3 % (10.0-50.0); Mean Corpuscular Hemoglobin 29.7 pg (28.0-32.0); Mean Corpuscular Volume 87.6 fL (80.0-100.0); Monocytes # (auto) 0.3 10 ^3/uL (0-1.3); Monocytes % (auto) 2.2 % (0.0-12.0); Neutrophils # (auto) 10.7 10 ^3/uL (1.6-8.6); Neutrophils % (auto) 94.4 % (37.0-80.0); Nucleated Red Blood Cells % 0.1 %; Platelet Count (auto) 392 10^3/uL (140-450); Red Blood Cells 4.93 10^6/uL (4.5-5.90); Red Cell Distribution Width 13.9 % (11.8-14.3); White Blood Cell 11.4 10^3/uL (4.4-10.8)
[2020-07-16] MEDS: FAMOTIDINE (10MG/ML) 2ML VL IV SCH ×2 (10:00→22:00)
[2020-07-16] MEDS: ZINC SULFATE 220mg CAP or TAB PO SCH (10:00)
[2020-07-16] MEDS: POTASSIUM CHL 20 Meq TABLET PO SCH (10:00)
[2020-07-16] MEDS: CHOLECALCIFEROL (VITD3) 2,000 UNIT CAP/TAB PO SCH (10:00)
[2020-07-16] MEDS: FUROSEMIDE 40 MG/4 ML VIAL IV SCH (10:00)
[2020-07-16] MEDS: ASPirin 81 mg TAB PO SCH (10:00)
[2020-07-16] MEDS: ASCORBIC ACID 1,000 MG TAB PO SCH (10:00)
[2020-07-16] MEDS: ENOXAPARIN SOD 60 MG/0.6 ML SYRINGE SC SCH ×2 (10:29→22:00)
[2020-07-16] MEDS: DexAMETHasone SOD PHOS 10MG/1ML VIAL INJ IV SCH (10:29)
[2020-07-16] MEDS ORDERED: ETOMIDATE (2MG/ML) 20ML VIAL IV ONE ×3 (10:30→11:16)
[2020-07-16] MEDS: CEFTRIAXONE SODIUM 2 GM in D5W 5% 50 ML IV SCH (10:30)
[2020-07-16] MEDS ORDERED: ROCURONIUM 10MG/ML 10ML VIAL IV ONE ×2 (11:00→11:15)
[2020-07-16 12:20] LABS: BUN/Creatinine Ratio 54.2; Calcium 8.8 mg/dL (8.5-10.1); Potassium 4.5 mmol/L (3.5-5.1)
[2020-07-16] MEDS: MIDAZOLAM DRIP 50 mg/50mL 50 ML IV SCH (13:33)
[2020-07-16 14:45] LABS: INR 1.09 (0.9-1.15); Partial Thromboplastin Time 28.3 sec (23.0-31.2)
[2020-07-16] MEDS ORDERED: PHENYLEPHRINE IV 250 ML IV ONE (15:51)
[2020-07-16] MEDS: fentaNYL Drip 2500mCg/250mlNS 250 ML IV SCH (15:53)
[2020-07-16] MEDS: PHENYLEPHRINE IV 250 ML IV SCH (17:15)
[2020-07-16] MEDS: PROPOFOL 100 ML IV SCH ×2 (18:55→21:25)
[2020-07-16] MEDS: SODIUM CHLOR 0.9% PF (SALINE LOCK) 10ML VIAL/SYR IV SCH (22:00)
[2020-07-16] MEDS: ATORVASTATIN 20 MG TAB PO SCH (22:00)
[2020-07-17] VITALS (64 sets, daily range): BP systolic 95–137; BP diastolic 54–76
[2020-07-17] MEDS: PHENYLEPHRINE IV 250 ML IV SCH ×3 (01:35→18:15)
[2020-07-17 04:45] LABS: Basophils # (auto) 0 10 ^3/uL (0-0.2); Basophils % (auto) 0.1 % (0.0-2.0); Eosinophils # (auto) 0 10 ^3/uL (0-0.8); Hematocrit 43.5 % (41.0-53.0); Hemoglobin 14.6 g/dL (13.5-17.5); Lymphocytes # (auto) 0.4 10 ^3/uL (0.4-5.4); Lymphocytes % (auto) 1.8 % (10.0-50.0); Mean Corpuscular Hemoglobin 30.2 pg (28.0-32.0); Mean Corpuscular Hgb Conc. 33.5 g/dL (32.0-36.0); Monocytes # (auto) 0.8 10 ^3/uL (0-1.3); Monocytes % (auto) 3.3 % (0.0-12.0); Neutrophils # (auto) 22.3 10 ^3/uL (1.6-8.6); Neutrophils % (auto) 94.8 % (37.0-80.0); Platelet Count (auto) 407 10^3/uL (140-450); Red Blood Cells 4.83 10^6/uL (4.5-5.90); Red Cell Distribution Width 14.4 % (11.8-14.3); White Blood Cell 23.5 10^3/uL (4.4-10.8)
[2020-07-17] MEDS: DOXYCYCLINE 100MG/250ML 250 ML IV SCH ×2 (04:45→17:00)
[2020-07-17] MEDS: InsuLIN REG 1unit/0.01ml Soln (100units/ml) SC SCH ×5 (06:00→23:19)
[2020-07-17] MEDS: ACCU-CHEK COMFORT CURVE STRIP VI SCH ×5 (06:07→23:19)
[2020-07-17] MEDS: INSULIN LANTUS (GLARGINE) 1 /0.01ml (100units/ml) SC SCH (06:32)
[2020-07-17] MEDS ORDERED: PHENYLEPHRINE HCL 10 MG/ML VL ONE (07:40)
[2020-07-17] MEDS ORDERED: CALCIUM GLUC 4.65meq/50ml D5AE 50 ML IV ONE (08:30)
[2020-07-17] MEDS ORDERED: ALBUTEROL SULF 2.5 MG/0.5ML(0.5%) NEB SOLN NEB ONE (08:30)
[2020-07-17] MEDS ORDERED: DEXTROSE (50%) 50ML SYRG IV ONE (08:30)
[2020-07-17] MEDS ORDERED: InsuLIN REG 1unit/0.01ml Soln (100units/ml) IV ONE (08:30)
[2020-07-17] MEDS ORDERED: SODIUM ZIRCONIUM CYCL 10 GM PAK GT ONE (09:00)
[2020-07-17] MEDS ORDERED: SODIUM BICARBONATE 8.4 % INJ 50ML VIAL IV ONE (09:00)
[2020-07-17] MEDS: BUDESONIDE (INHALATION) 180 MCG IH IN SCH (10:00)
[2020-07-17] MEDS: CHOLECALCIFEROL (VITD3) 2,000 UNIT CAP/TAB PO SCH (10:00)
[2020-07-17] MEDS: FUROSEMIDE 40 MG/4 ML VIAL IV SCH (10:00)
[2020-07-17] MEDS: FAMOTIDINE (10MG/ML) 2ML VL IV SCH ×2 (10:00→21:57)
[2020-07-17] MEDS: ENOXAPARIN SOD 60 MG/0.6 ML SYRINGE SC SCH ×2 (10:00→21:57)
[2020-07-17] MEDS: ASPirin 81 mg TAB PO SCH (10:00)
[2020-07-17] MEDS: SODIUM CHLOR 0.9% PF (SALINE LOCK) 10ML VIAL/SYR IV SCH ×2 (10:00→21:57)
[2020-07-17] MEDS: fentaNYL Drip 2500mCg/250mlNS 250 ML IV SCH (12:30)
[2020-07-17] MEDS ORDERED: PIPERACILLIN-TAZOB 2.25GM 50 ML IV ONE (12:30)
[2020-07-17] MEDS: SODIUM BICARBONATE 50ML VIAL 150 ML in D5W 5% 1,000 ML IV SCH ×2 (13:00→20:30)
[2020-07-17] MEDS: SODIUM ZIRCONIUM CYCL 10 GM PAK GT SCH ×2 (14:00→21:56)
[2020-07-17] MEDS ORDERED: PIPERACILLIN-TAZOB 2.25GM 50 ML IV SCH (18:00)
[2020-07-17] MEDS: MIDAZOLAM DRIP 50 mg/50mL 50 ML IV SCH ×2 (18:08→20:30)
[2020-07-17] MEDS: PIPERACILLIN-TAZOB 2.25GM 50 ML IV SCH (20:00)
[2020-07-17] MEDS: ALBUTEROL SULF 2.5 MG/0.5ML(0.5%) NEB SOLN NEB PRN (20:04)
[2020-07-17] MEDS: BUDESONIDE (INHALATION) 0.5 MG/2 ML NEB NEB SCH (20:05)
[2020-07-17] MEDS: ATORVASTATIN 20 MG TAB PO SCH (21:57)
[2020-07-18] VITALS (74 sets, daily range): BP systolic 76–145; BP diastolic 43–79
[2020-07-18] MEDS: PIPERACILLIN-TAZOB 2.25GM 50 ML IV SCH ×4 (01:29→20:00)
[2020-07-18] MEDS: PHENYLEPHRINE IV 250 ML IV SCH ×3 (02:35→16:33)
[2020-07-18] MEDS: DOXYCYCLINE 100MG/250ML 250 ML IV SCH ×2 (04:45→18:33)
[2020-07-18 05:29] LABS: Basophils # (auto) 0 10 ^3/uL (0-0.2); Eosinophils # (auto) 0 10 ^3/uL (0-0.8); Hematocrit 35.6 % (41.0-53.0); Hemoglobin 11.9 g/dL (13.5-17.5); Lymphocytes # (auto) 0.3 10 ^3/uL (0.4-5.4); Lymphocytes % (auto) 1.9 % (10.0-50.0); Mean Corpuscular Hemoglobin 29.5 pg (28.0-32.0); Mean Corpuscular Hgb Conc. 33.3 g/dL (32.0-36.0); Mean Corpuscular Volume 88.4 fL (80.0-100.0); Monocytes # (auto) 0.5 10 ^3/uL (0-1.3); Monocytes % (auto) 3.3 % (0.0-12.0); Neutrophils # (auto) 14.7 10 ^3/uL (1.6-8.6); Neutrophils % (auto) 94.8 % (37.0-80.0); Platelet Count (auto) 275 10^3/uL (140-450); Red Blood Cells 4.03 10^6/uL (4.5-5.90); Red Cell Distribution Width 14.3 % (11.8-14.3); White Blood Cell 15.5 10^3/uL (4.4-10.8)
[2020-07-18] MEDS: SODIUM ZIRCONIUM CYCL 10 GM PAK GT SCH ×3 (05:35→21:58)
[2020-07-18] MEDS: INSULIN LANTUS (GLARGINE) 1 /0.01ml (100units/ml) SC SCH (06:00)
[2020-07-18] MEDS: ACCU-CHEK COMFORT CURVE STRIP VI SCH ×3 (06:03→18:37)
[2020-07-18] MEDS: InsuLIN REG 1unit/0.01ml Soln (100units/ml) SC SCH ×3 (06:04→18:36)
[2020-07-18 06:06] LABS: Potassium 4.4 mmol/L (3.5-5.1)
[2020-07-18 06:14] LABS: BUN/Creatinine Ratio 26.9; Calcium 7.2 mg/dL (8.5-10.1)
[2020-07-18] MEDS: ALBUTEROL SULF 2.5 MG/0.5ML(0.5%) NEB SOLN NEB PRN ×2 (06:48→22:13)
[2020-07-18] MEDS: BUDESONIDE (INHALATION) 0.5 MG/2 ML NEB NEB SCH ×2 (06:48→22:13)
[2020-07-18] MEDS: SODIUM BICARBONATE 50ML VIAL 150 ML in D5W 5% 1,000 ML IV SCH (09:23)
[2020-07-18] MEDS: FAMOTIDINE (10MG/ML) 2ML VL IV SCH ×2 (10:17→21:56)
[2020-07-18] MEDS: ENOXAPARIN SOD 60 MG/0.6 ML SYRINGE SC SCH ×2 (10:17→21:56)
[2020-07-18] MEDS: ASPirin 81 mg TAB PO SCH (10:17)
[2020-07-18] MEDS: CHOLECALCIFEROL (VITD3) 2,000 UNIT CAP/TAB PO SCH (10:18)
[2020-07-18] MEDS: PROPOFOL 100 ML IV SCH ×2 (10:22→16:29)
[2020-07-18] MEDS: SODIUM CHLOR 0.9% PF (SALINE LOCK) 10ML VIAL/SYR IV SCH ×2 (11:12→21:56)
[2020-07-18] MEDS: MIDAZOLAM DRIP 50 mg/50mL 50 ML IV SCH ×4 (11:14→21:58)
[2020-07-18] MEDS: fentaNYL Drip 2500mCg/250mlNS 250 ML IV SCH (12:10)
[2020-07-18] MEDS: ATORVASTATIN 20 MG TAB PO SCH (21:57)
[2020-07-19] VITALS (79 sets, daily range): BP systolic 84–173; BP diastolic 41–84
[2020-07-19] MEDS: ACCU-CHEK COMFORT CURVE STRIP VI SCH ×4 (00:22→19:18)
[2020-07-19] MEDS: InsuLIN REG 1unit/0.01ml Soln (100units/ml) SC SCH ×4 (00:24→18:00)
[2020-07-19] MEDS: PIPERACILLIN-TAZOB 2.25GM 50 ML IV SCH ×4 (02:00→20:00)
[2020-07-19] MEDS: PHENYLEPHRINE IV 250 ML IV SCH ×3 (03:35→13:45)
[2020-07-19 04:34] LABS: Calcium 7.5 mg/dL (8.5-10.1); Potassium 3.9 mmol/L (3.5-5.1)
[2020-07-19 04:36] LABS: BUN/Creatinine Ratio 31.7
[2020-07-19] MEDS: DOXYCYCLINE 100MG/250ML 250 ML IV SCH ×2 (04:45→17:36)
[2020-07-19] MEDS: SODIUM ZIRCONIUM CYCL 10 GM PAK GT SCH (05:56)
[2020-07-19] MEDS: INSULIN LANTUS (GLARGINE) 1 /0.01ml (100units/ml) SC SCH (07:00)
[2020-07-19] MEDS: PROPOFOL 100 ML IV SCH ×2 (07:28→12:15)
[2020-07-19] MEDS: MIDAZOLAM DRIP 50 mg/50mL 50 ML IV SCH ×5 (07:29→20:47)
[2020-07-19] MEDS: BUDESONIDE (INHALATION) 0.5 MG/2 ML NEB NEB SCH ×2 (10:00→18:17)
[2020-07-19] MEDS: SODIUM CHLOR 0.9% PF (SALINE LOCK) 10ML VIAL/SYR IV SCH ×2 (10:12→21:05)
[2020-07-19] MEDS: ASPirin 81 mg TAB PO SCH (10:12)
[2020-07-19] MEDS: FAMOTIDINE (10MG/ML) 2ML VL IV SCH ×2 (10:12→21:05)
[2020-07-19] MEDS: ENOXAPARIN SOD 60 MG/0.6 ML SYRINGE SC SCH ×2 (10:13→21:05)
[2020-07-19] MEDS: CHOLECALCIFEROL (VITD3) 2,000 UNIT CAP/TAB PO SCH (10:13)
[2020-07-19] MEDS: ALBUTEROL SULF 2.5 MG/0.5ML(0.5%) NEB SOLN NEB PRN (11:46)
[2020-07-19] MEDS: fentaNYL Drip 2500mCg/250mlNS 250 ML IV SCH (13:48)
[2020-07-19] MEDS: ATORVASTATIN 20 MG TAB PO SCH (21:05)
[2020-07-20] MEDS: InsuLIN REG 1unit/0.01ml Soln (100units/ml) SC SCH
[2020-07-20] MEDS: ACCU-CHEK COMFORT CURVE STRIP VI SCH
[2020-07-20] MEDS: PIPERACILLIN-TAZOB 2.25GM 50 ML IV SCH (02:00)
[2020-07-20 02:10] VITALS: BP 84/47
[2020-07-20] MEDS: ALBUTEROL SULF 2.5 MG/0.5ML(0.5%) NEB SOLN NEB PRN (02:15)
[2020-07-20] MEDS: PHENYLEPHRINE IV 250 ML IV SCH (03:17)
[2020-07-20 05:02] LABS: Calcium 7.5 mg/dL (8.5-10.1); Potassium 5.5 mmol/L (3.5-5.1)
[2020-07-20 05:04] LABS: BUN/Creatinine Ratio 24.4
== END 2020-07-20 08:16 | DRG 720 ==
LOC: ER 17:37 → TELE 17:38 → TELE-E-ADS 07-05 14:26 → TELE-WESTW 07-07 12:24 → ICU WEST 07-16 16:11
PROVIDERS: ADMIT Hospitalist; ATTEND Internal Medicine Nephrology
PROC: 5A0955A Assistance with Respiratory Ventilation, Greater than 96 Consecutive Hours, High Flow/Velocity Cannula (ICD-10-PCS; 2020-07-03)
PROC: XW13325 Transfusion of Convalescent Plasma (Nonautologous) into Peripheral Vein, Percutaneous Approach, New Technology Group 5 (ICD-10-PCS; principal; 2020-07-05)
PROC: XW033E5 Introduction of Remdesivir Anti-infective into Peripheral Vein, Percutaneous Approach, New Technology Group 5 (ICD-10-PCS; 2020-07-05)
PROC: 5A1945Z Respiratory Ventilation, 24-96 Consecutive Hours (ICD-10-PCS; 2020-07-16)
PROC: 0BH17EZ Insertion of Endotracheal Airway into Trachea, Via Natural or Artificial Opening (ICD-10-PCS; 2020-07-16)
PROC: 02HV33Z Insertion of Infusion Device into Superior Vena Cava, Percutaneous Approach (ICD-10-PCS; 2020-07-16)
DX: A41.89 Other specified sepsis (principal); U07.1 COVID-19; J12.82 Pneumonia due to coronavirus disease 2019; J96.01 Acute respiratory failure with hypoxia; N17.0 Acute kidney failure with tubular necrosis; I50.33 Acute on chronic diastolic (congestive) heart failure; Z66 Do not resuscitate; D68.59 Other primary thrombophilia; E11.65 Type 2 diabetes mellitus with hyperglycemia; N18.31 Chronic kidney disease, stage 3a; E87.1 Hypo-osmolality and hyponatremia; R79.82 Elevated C-reactive protein (CRP); I13.0 Hypertensive heart and chronic kidney disease with heart failure and stage 1 through stage 4 chronic kidney disease, or unspecified chronic kidney disease; E11.22 Type 2 diabetes mellitus with diabetic chronic kidney disease; Z51.5 Encounter for palliative care; E66.01 Morbid (severe) obesity due to excess calories; E78.5 Hyperlipidemia, unspecified; R65.21 Severe sepsis with septic shock; E87.5 Hyperkalemia; Z68.38 Body mass index [BMI] 38.0-38.9, adult; Z99.11 Dependence on respirator [ventilator] status; Z83.3 Family history of diabetes mellitus
CPT/HCPCS: 36415; 36569; 36600; 71045; 80048; 80053; 80061; 80158; 80307; 81001; 82306; 82728; 82805; 82962; 83036; 83605; 83615; 83735; 83880; 84100; 84443; 84484; 85025; 85379; 85610; 85730; 86141; 86850; 86900; 86901; 87040; 87070; 87081; 87086; 87205; 87426; 87804; 93005; 93306; 93970; 94002; 94003; 94640; 94660; 94760; 94762; 99291; G0378; J0610; J0696; J1100; J1815; J2250; J2543; J2704; J3490; J7060; P9047